=== PATIENT | female | born 1965 | race Two or more races ===

== ENCOUNTER 2024-03-18 18:46 | Inpatient (IN) | payer MEDICAID, OTHER ==
[~2024-03-18] VITALS: Ht 157.5 cm; Wt 59.1 kg
[2024-03-18] MEDS: hydrALAZINE HCL 10 MG TAB PO ONE (20:14)
[2024-03-18] MEDS: ONDANSETRON ODT 4 MG TAB PO ONE (20:15)
[2024-03-18 20:17] LABS: Hematocrit 34.4 % (36.0-46.0); Hemoglobin 11.6 g/dL (12.2-16.2); Mean Corpuscular Hemoglobin 32.1 pg (28.0-32.0); Mean Corpuscular Hgb Conc. 33.6 g/dL (32.0-36.0); Mean Corpuscular Volume 95.7 fL (80.0-100.0); Red Cell Distribution Width 12.7 % (11.8-14.3); White Blood Cell 5.4 10^3/uL (4.4-10.8)
[2024-03-18 20:24] LABS: Band Neutrophils % (manual) 0; Basophils % (manual) 0 (0.0-2.0); Blast Cells 0; Metamyelocytes % 0; Myelocytes % 0; Promyelocytes % 0; Reactive Lymphocytes 0
[2024-03-18 20:26] LABS: Chloride 108 mmol/L (98-107); Potassium 3.9 mmol/L (3.5-5.1); Sodium 143 mmol/L (136-145)
[2024-03-18 20:27] LABS: Anion Gap 5 (5-15); Calcium 9.9 mg/dL (8.5-10.1); Carbon Dioxide 30 mmol/L (20-30)
[2024-03-18 20:32] LABS: Blood Urea Nitrogen 26 mg/dL (9-23); Glucose 246 mg/dL (74-106)
[2024-03-18] MEDS: LABETALOL HCL 200 MG TAB PO ONE (20:33)
[2024-03-18 20:56] LABS: Eosinophils % (manual) 18 (0-7); Lymphocytes % (manual) 10 (10.0-50.0); Monocytes % (manual) 2 (0-12); Platelet Estimate Adequate
[2024-03-19] VITALS: PULSE 76; RESP 15; O2SAT 99
[2024-03-19] MEDS: LABETALOL HCL 5 MG/ML 4ML SYRINGE IV ONE (00:14)
[2024-03-19] MEDS: LABETALOL HCL 20 MG/4 ML VL IV ONE (00:16)
[2024-03-19] MEDS ORDERED: DOCUSATE SOD 100 MG CAP PO PRN (01:45)
[2024-03-19] MEDS ORDERED: DEXTROSE (50%) 50ML SYRG IV PRN (01:45)
[2024-03-19] MEDS ORDERED: ONDANSETRON HCL 4 MG/2 ML VIAL IV PRN (01:45)
[2024-03-19] MEDS ORDERED: ACETAMINOPHEN 325 MG TAB PO PRN (01:45)
[2024-03-19] MEDS ORDERED: HYDROcodone-ACET 5/325MG TAB PO PRN (01:45)
[2024-03-19] MEDS: ENALAPRILAT 1.25 MG/ML-1ML VIAL IV ONE (02:41)
[2024-03-19] MEDS ORDERED: NITROGLYCERIN 0.4 MG SL TAB SL PRN (02:45)
[2024-03-19] MEDS ORDERED: MORPHINE SULFATE INJ 2 MG/ml SYRG IV PRN (02:45)
[2024-03-19 04:23] LABS: Basophils # (auto) 0.1 10 ^3/uL (0-0.2); Basophils % (auto) 1.4 % (0.0-2.0); Eosinophils # (auto) 0.6 10 ^3/uL (0-0.8); Eosinophils % (auto) 14.6 % (0.0-7.0); Hematocrit 29.7 % (36.0-46.0); Hemoglobin 10.1 g/dL (12.2-16.2); Lymphocytes # (auto) 1.4 10 ^3/uL (0.4-5.4); Lymphocytes % (auto) 34.8 % (10.0-50.0); Mean Corpuscular Hemoglobin 32.5 pg (28.0-32.0); Mean Corpuscular Volume 95.7 fL (80.0-100.0); Monocytes # (auto) 0.2 10 ^3/uL (0-1.3); Monocytes % (auto) 5.3 % (0.0-12.0); Neutrophils # (auto) 1.8 10 ^3/uL (1.6-8.6); Neutrophils % (auto) 43.9 % (37.0-80.0); Red Blood Cells 3.11 10^6/uL (4.0-5.20); Red Cell Distribution Width 12.7 % (11.8-14.3); White Blood Cell 4.1 10^3/uL (4.4-10.8)
[2024-03-19 04:36] LABS: Alanine Aminotransferase 52 U/L (7-40); Albumin 3.8 g/dL (3.2-4.8); Alkaline Phosphatase 68 U/L (46-116); Anion Gap 3 (5-15); Aspartate Aminotransferase 30 U/L (13-40); BUN/Creatinine Ratio 25.8 (10.0-20.0); Bilirubin, Total 0.5 mg/dL (0.2-1.0); Blood Urea Nitrogen 23 mg/dL (9-23); Calcium 9.4 mg/dL (8.5-10.1); Carbon Dioxide 28 mmol/L (20-30); Chloride 109 mmol/L (98-107); Glucose 170 mg/dL (74-106); Potassium 3.6 mmol/L (3.5-5.1); Sodium 140 mmol/L (136-145); Total Protein 5.7 g/dL (5.7-8.2)
[2024-03-19] MEDS: cloNIDine HCL 0.1 MG TAB PO PRN (04:57)
[2024-03-19 05:56] VITALS: BP 119/56; PULSE 77; RESP 16; TEMP 97.7; O2SAT 95
[2024-03-19] MEDS: SODIUM CHLOR 0.9% PF (SALINE LOCK) 10ML VIAL/SYR IV SCH (06:10)
[2024-03-19] MEDS: ACCU-CHEK COMFORT CURVE STRIP VI SCH (06:10)
[2024-03-19] MEDS: InsuLIN REG 1unit/0.01ml Soln (100units/ml) SC SCH (06:12)
[2024-03-19] MEDS ORDERED: SEMA1INJ2 SC (06:58)
[2024-03-19] MEDS ORDERED: INSLANTI SC (06:59)
[2024-03-19] MEDS ORDERED: LOSA-534 PO (07:00)
[2024-03-19] MEDS ORDERED: PIOG1TAB37 PO (07:02)
[2024-03-19] MEDS ORDERED: ATOR40TA52 PO (07:02)
[2024-03-19 08:00] VITALS: PULSE 76
[2024-03-19 08:20] VITALS: BP 147/69; PULSE 74; RESP 15; TEMP 97.6; O2SAT 97
[2024-03-19] MEDS: LOSARTAN POTASSIUM 50 MG TAB PO SCH (10:25)
[2024-03-19] MEDS ORDERED: AMLO1TAB23 PO (12:04)
[2024-03-19 13:00] VITALS: BP 149/73; PULSE 73; RESP 12; TEMP 97.8; O2SAT 95
[2024-03-19] MEDS ORDERED: InsuLIN REG 1unit/0.01ml Soln (100units/ml) SC SCH (22:00)
[2024-03-19] MEDS ORDERED: ATORVASTATIN 20 MG TAB PO SCH (22:00)
[2024-03-21 10:33] LABS: Hepatitis B Surface Antigen Negative (Negative)
[2024-03-21 10:55] LABS: Hepatitis C Antibody Negative (Negative)
== END 2024-03-19 16:20 | disposition home or self-care (01) | DRG 199 ==
LOC: ER 18:46 → TELE 03-19 02:33 → TELE-CENTR 03-19 05:52
PROVIDERS: ADMIT Nurse Practitioner Family; ATTEND Nurse Practitioner Family
DX: I16.1 Hypertensive emergency (principal); G61.0 Guillain-Barre syndrome; E11.65 Type 2 diabetes mellitus with hyperglycemia; Z79.899 Other long term (current) drug therapy; Z79.4 Long term (current) use of insulin
CPT/HCPCS: 36415; 70450; 80048; 80053; 82962; 84484; 85007; 85025; 85027; 86803; 87340; 93005; 96374; 96375; G0378; J1815; J3490; Q0162